=== PATIENT | male | born 1985 | race Hispanic/Latino ===

== ENCOUNTER 2017-06-14 23:32 | Emergency (ER) | payer OTHER ==
--- NOTE | 2017-06-15 00:05 | RAD ---
RADIOGRAPH CHEST 2 VIEWS: HISTORY: 32-year-old male with acute chest pain. FINDINGS: There is no air space density, pulmonary edema, pleural effusion, pneumothorax, or cardiomegaly. IMPRESSION: No acute cardiopulmonary findings. jay POS: ANITHA
[2017-06-15 00:17] LABS: #Basophils 0.1 thou/uL (0.0-0.2); #Eosinphils 0.2 thou/uL (0.0-0.7); #Lymphocytes 3.6 thou/uL (1.20-3.40); %Basophils 0.7 % (0.0-1.0); %Eosinophils 2.3 % (0.0-10.0); %Lymphocytes 32.9 % (21.0-51.0); %Monocytes 8.9 % (0.0-10.0); Hematocrit 50.4 % (42.0-52.0); Mean Platelet Volume 6.8 fL (7.4-10.4); White Blood Cell (WBC) Count 10.8 thou/uL (4.8-10.8)
[2017-06-15 00:38] LABS: ALT (SGPT) 24 U/L (8-55); AST (SGOT) 25 U/L (5-34); Alkaline Phosphatase 62 U/L (40-150); Anion Gap 10 mmol/L (10-20); BUN (Urea Nitrogen) 17 mg/dL (8.9-20.6); Bilirubin, Total 0.6 mg/dL (0.2-1.2); Calc. Creatinine Clearance 0 mL/min (70-130); Calcium 8.2 mg/dL (7.8-10.44); Carbon Dioxide 25 mmol/L (22-29); Chloride 107 mmol/L (98-107); Estimated GFR-MDRD Greater than 90; Globulin 2.4 g/dL (2.4-3.5)
[2017-06-15 00:40] LABS: Troponin I Less than 0.010 ng/mL (< 0.028)
== END 2017-06-15 02:44 | disposition left against medical advice (07) ==
LOC: ERS 23:32
DX: Z53.21 Procedure and treatment not carried out due to patient leaving prior to being seen by health care provider (principal)
CPT/HCPCS: 36415; 71020; 80053; 82553; 84484; 85025; 93005

== ENCOUNTER 2017-06-15 19:37 | Emergency (ER) | payer OTHER ==
[2017-06-15 20:28] LABS: Troponin I Less than 0.010 ng/mL (< 0.028)
[2017-06-15] MEDS ORDERED: Ketorolac Tromethamine 30 MG/ML VIAL ONE (20:44)
--- NOTE | 2017-07-11 20:53 | EKG ---
Test Reason : CHEST PAIN Blood Pressure : / mmHG Vent. Rate : 071 BPM Atrial Rate : 071 BPM P-R Int : 138 ms QRS Dur : 102 ms QT Int : 370 ms P-R-T Axes : 009 038 003 degrees QTc Int : 402 ms Normal sinus rhythm Normal ECG Confirmed by LYNETTE LANGLEY, REYNA ([id number]), newspaper or periodical editor JEANNE HINDS ([id number]) on 07/11/2017 8:52:27 PM Referred By: AYO OJEDA Confirmed By:REYNA OJEDA MD
== END 2017-06-15 20:53 | disposition home or self-care (01) ==
LOC: ERS 19:37
DX: R07.89 Other chest pain (principal)
CPT/HCPCS: 93005; 96374; J1885

== ENCOUNTER 2023-11-17 15:31 | Emergency (ER) | payer BC, OTHER, SELFPAY ==
[2023-11-17 16:06] LABS: #Basophils 0.05 10x3/uL (0.0-0.2); #Eosinphils Less than 0.03 10x3/uL (0.0-0.7); %Basophils 0.5 % (0.0-1.0); %Monocytes 12.1 % (0.0-10.0); %Neutrophils 68.8 % (42.0-75.0); Hematocrit 41.3 % (42.0-52.0); Hemoglobin 14.7 g/dL (14.0-18.0); Mean Corpuscular HGB CONC 35.6 g/dL (32.0-36.0); Mean Corpuscular Volume 92.6 fL (78.0-98.0); Mean Platelet Volume 9.4 fL (7.4-10.4); Platelet Count 247 10x3/uL (130-400); RBC Distribution Width 12.2 % (11.5-14.5); Red Blood Cell (RBC) Count 4.46 mill/uL (4.70-6.10)
[2023-11-17 16:12] LABS: Bacteria/HPF None Seen HPF (None Seen); Bilirubin Negative (Negative); Blood, Urine Negative (Negative); CAUTI Indications for Culture Dysuria,urgency,freq; Clarity Clear (Clear); Glucose, Urine (Dipstick) Normal (Negative); Ketone, Urine Negative (Negative); Leukocyte Negative Leu/uL (Negative); Nitrite Negative (Negative); Protein, Urine (Dipstick) Negative (Neg-Trace); RBC/HPF None Seen HPF (0-3); Squamous Epithelial None Seen HPF (0-3); Urobilinogen Normal mg/dL (Less than 2); WBC/HPF 0-3 HPF (0-3)
[2023-11-17 16:20] LABS: ALT (SGPT) 24 U/L (8-55); AST (SGOT) 32 U/L (5-34); Albumin 4.1 g/dL (3.5-5.0); Alkaline Phosphatase 78 U/L (40-110); Anion Gap 16 mmol/L (10-20); BUN (Urea Nitrogen) 7 mg/dL (8.9-20.6); Bilirubin, Total 0.9 mg/dL (0.2-1.2); CK (CPK) 726 U/L (30-200); Calc. Creatinine Clearance 0 mL/min (70-130); Calcium 9.8 mg/dL (7.8-10.44); Carbon Dioxide 22 mmol/L (22-29); Chloride 106 mmol/L (98-107); Estimated GFR 114; Globulin 3.2 g/dL (2.4-3.5); Glucose 103 mg/dL (70-105); Potassium 3.2 mmol/L (3.5-5.1); Protein, Total 7.3 g/dL (6.0-8.3); Sodium 141 mmol/L (136-145)
[2023-11-17 16:24] LABS: Urine Culture Reflex No No
[2023-11-17 18:26] LABS: Troponin I Less than 0.010 ng/mL (< 0.028)
[2023-11-17] MEDS ORDERED: hydrOXYzine Pamoate 25 mg Capsule ONE (19:09)
== END 2023-11-17 19:49 | disposition home or self-care (01) ==
LOC: ERS 15:31
DX: M62.838 Other muscle spasm (principal); Z87.891 Personal history of nicotine dependence
CPT/HCPCS: 36415; 70450; 71045; 80053; 81001; 82550; 83690; 84484; 85025; 93005; Q0177